=== PATIENT | male | born 1945 | race Two or more races ===

== ENCOUNTER → 2018-11-09 | Outpatient (CLI) | payer MEDICARE, OTHER ==
[~2018-11-09] MED LIST: ATOR40TA PO; MULTIVITAMIN PO
== END | disposition home or self-care (01) ==
LOC: STAR 07:36
PROVIDERS: ATTEND Urology
DX: Z01.818 Encounter for other preprocedural examination (principal); N20.0 Calculus of kidney; I45.10 Unspecified right bundle-branch block
CPT/HCPCS: 93005

== ENCOUNTER 2018-11-17 07:01 | Day surgery (SDC) | payer MEDICARE, OTHER ==
[~2018-11-17] VITALS: Ht 172.7 cm; Wt 101.4 kg
[2018-11-17] MEDS ORDERED: FENTANYL PF 100 MCG/2ML ONE ×2 (07:29→09:54)
[2018-11-17] MEDS ORDERED: PROPOFOL 10 MG/ML, 20ML ONE (07:30)
[2018-11-17] MEDS ORDERED: ROCURONIUM 10MG/ML,5ML ONE (07:30)
[2018-11-17] MEDS ORDERED: DEXAMETHASONE 4 MG/ML, 1ML ONE (07:30)
[2018-11-17] MEDS ORDERED: SUCCINYLCHOLINE 20 MG/ML, 10ML ONE (07:30)
[2018-11-17] MEDS ORDERED: NEOSTIGMINE 1 MG/ML, 10ML ONE (07:30)
[2018-11-17] MEDS ORDERED: LACTATED RINGERS 1,000 ML IV SCH (07:30)
[2018-11-17] MEDS ORDERED: CEFAZOLIN 1,000 MG ONE (07:30)
[2018-11-17] MEDS ORDERED: LIDOCAINE-MPF 2% ,5ML ONE (07:30)
[2018-11-17] MEDS ORDERED: GLYCOPYRROLATE 0.2MG/1ML, 5ML ONE (07:30)
[2018-11-17] MEDS ORDERED: ONDANSETRON 2MG/ML, 2ML ONE (07:30)
[2018-11-17 07:31] VITALS: BP 152/82
[2018-11-17] MEDS ORDERED: ONDANSETRON ODT 8 MG PO PRN (09:00)
[2018-11-17] MEDS ORDERED: PROMETHAZINE 25 MG SUPP PR PRN (09:00)
[2018-11-17] MEDS ORDERED: PROMETHAZINE 25 MG/ML, 1ML IV PRN (09:00)
[2018-11-17] MEDS ORDERED: OXYcodone 5 MG/5 ML ORAL.SOL UDC PO PRN (09:00)
[2018-11-17] MEDS ORDERED: HYDROmorphone 2 MG/ML, 1ML IVPush PRN (09:00)
[2018-11-17] MEDS ORDERED: ONDANSETRON 2MG/ML, 2ML IV PRN (09:00)
[2018-11-17] MEDS ORDERED: FENTANYL PF 100 MCG/2ML IV PRN (09:00)
[2018-11-17] MEDS ORDERED: ACETAMINOPHEN 325 MG TABLET PO PRN (09:00)
[2018-11-17] MEDS ORDERED: EPHEDRINE 50 MG/ML, 1ML ONE (09:01)
[2018-11-17] MEDS ORDERED: ATORVASTATIN 40 MG TABLET PO SCH (21:00)
== END 2018-11-17 12:50 | disposition home or self-care (01) ==
LOC: OUT 07:01
PROVIDERS: ATTEND Urology
DX: N20.0 Calculus of kidney (principal); E78.2 Mixed hyperlipidemia; G47.33 Obstructive sleep apnea (adult) (pediatric); Z87.891 Personal history of nicotine dependence; Z85.038 Personal history of other malignant neoplasm of large intestine; Z98.890 Other specified postprocedural states; Z79.899 Other long term (current) drug therapy
CPT/HCPCS: 50590; 52332; 74018; C1758; C2617; J0330; J0690; J1100; J2405; J2704; J2710; J3010; J7120

== ENCOUNTER 2020-08-02 10:44 | Day surgery (SDC) | payer MEDICARE, OTHER ==
[~2020-08-02] VITALS: Ht 172.7 cm; Wt 102.9 kg
[~2020-08-02 10:44] MED LIST changes: +POTASSIUM PO
[2020-08-02 11:13] VITALS: BP 126/80
[2020-08-02] MEDS ORDERED: CHLORHEXIDINE 15 ML UDC PO ONE (11:30)
[2020-08-02] MEDS ORDERED: LACTATED RINGERS 1,000 ML IV SCH (11:30)
[2020-08-02] MEDS ORDERED: MIDAZOLAM 1 MG/ML, 2ML ONE (12:22)
[2020-08-02] MEDS ORDERED: ROCURONIUM 10MG/ML,5ML ONE (12:34)
[2020-08-02] MEDS ORDERED: FENTANYL PF 250 MCG/5ML ONE (12:34)
[2020-08-02] MEDS ORDERED: EPINEPHRINE 1 MG/ML, 1ML ONE (12:47)
[2020-08-02] MEDS ORDERED: BUPIVACAINE/PF 0.5% ONE (12:47)
[2020-08-02] MEDS ORDERED: FENTANYL PF 100 MCG/2ML IV PRN (13:00)
[2020-08-02] MEDS ORDERED: ONDANSETRON 2MG/ML, 2ML IVPush PRN (13:00)
[2020-08-02] MEDS ORDERED: OXYcodone 5 MG/5 ML ORAL.SOL UDC PO PRN ×2 (13:00→14:30)
[2020-08-02] MEDS ORDERED: HYDROmorphone 1 MG/ML, 1ML INJ IVPush PRN (13:00)
[2020-08-02] MEDS ORDERED: PROMETHAZINE 25 MG/ML, 1ML IVPush PRN (13:00)
[2020-08-02] MEDS ORDERED: ACETAMINOPHEN 325 MG TABLET PO PRN (13:00)
[2020-08-02] MEDS ORDERED: LABETALOL 5MG/ML, 20ML IV PRN (13:00)
[2020-08-02] MEDS ORDERED: hydrALAzine 20 MG/ML, 1ML IV PRN (13:00)
[2020-08-02] MEDS ORDERED: PROPOFOL 10 MG/ML, 20ML ONE (13:06)
[2020-08-02] MEDS ORDERED: DEXAMETHASONE 4 MG/ML, 1ML ONE (13:06)
[2020-08-02] MEDS ORDERED: CEFAZOLIN 1,000 MG ONE ×2 (13:06)
[2020-08-02] MEDS ORDERED: EPHEDRINE 50 MG/ML, 1ML ONE (13:16)
[2020-08-02] MEDS ORDERED: BUPIVACAINE/PF-EPI 0.5% 1:200K INFIL ONE (13:18)
[2020-08-02] MEDS ORDERED: ONDANSETRON 2MG/ML, 2ML ONE (14:06)
[2020-08-02] MEDS ORDERED: OXYC5TAB2 PO (14:26)
[2020-08-02] MEDS ORDERED: FENTANYL PF 100 MCG/2ML ONE (14:39)
[2020-08-02] MEDS ORDERED: OXYcodone 5 MG/5 ML ORAL.SOL UDC ONE (14:39)
== END 2020-08-02 18:00 | disposition home or self-care (01) ==
LOC: OUT 10:44
PROVIDERS: ATTEND Surgery
DX: K43.2 Incisional hernia without obstruction or gangrene (principal); K66.0 Peritoneal adhesions (postprocedural) (postinfection); G47.33 Obstructive sleep apnea (adult) (pediatric); Z20.822 Contact with and (suspected) exposure to COVID-19; Z79.899 Other long term (current) drug therapy; Z85.038 Personal history of other malignant neoplasm of large intestine; Z87.891 Personal history of nicotine dependence
CPT/HCPCS: 49565; 49568; 93005; C1729; C1781; J0171; J0690; J1100; J2250; J2405; J2704; J3010; J7120; U0003